=== PATIENT | male | born 1965 | race Caucasian/White ===

== ENCOUNTER → 2016-08-07 | Outpatient (CLI) | payer OTHER ==
[~2016-08-07] MED LIST: ASPIRIN81 MG PO; CLOPIDOGREL75 MG PO; LISINOPRIL5 MG PO; LOPID600 MG PO; MULTI-VITAMIN1 EAC1 PO; NITROGLYGERIN0.4 MG SL; TENORMIN25 MG PO; VITAMIN C500 M1 PO; ZOCOR20 MG PO
[2016-08-07 10:03] LABS: ALBUMIN SERUM 4.1 g/dL (3.5-5.0); ALKALINE PHOSPHATASE 89 U/L (32-92); ALT (SGPT) 23 U/L (10-40); AST (SGOT) 22 U/L (10-42); BILIRUBIN,TOTAL 0.7 mg/dL (0.2-2.0); BLOOD UREA NITROGEN 16 mg/dL (9-23); BUN/CREATININE RATIO 22.85; CARBON DIOXIDE 24 mmol/L (22-31); CHLORIDE 106 mmol/L (100-111); CHOLESTEROL 187 mg/dL (0-200); CREATININE SERUM 0.7 mg/dL (0.6-1.4); GLOM FILT RATE Estimated 108.5 mL/min (>60); GLUCOSE FASTING 181 mg/dL (70-110); HDL CHOLESTEROL 32 mg/dL (29-75); POTASSIUM 4.3 mmol/L (3.5-5.1); PROTEIN TOTAL SERUM 7.4 g/dL (6.0-8.3); SODIUM 137 mmol/L (135-145)
[2016-08-07 10:05] LABS: TRIGLYCERIDES 409 mg/dL (10-160)
== END | disposition home or self-care (01) ==
LOC: CLAB 08:49
PROVIDERS: Internal Medicine Cardiovascular Disease
DX: I25.10 Atherosclerotic heart disease of native coronary artery without angina pectoris (principal); Z95.5 Presence of coronary angioplasty implant and graft
CPT/HCPCS: 36415; 80053; 80061